=== PATIENT | female | born 1995 | race Caucasian/White ===

== ENCOUNTER → 2022-07-26 | Outpatient (CLI) | payer OTHER ==
--- NOTE | 2022-07-27 04:11 | US ---
EXAMINATION TYPE: Transabdominal DATE OF EXAM: 07/26/2022 4:32 PM COMPARISON: NONE CLINICAL HISTORY: Z36.89 CONFIRM DATES. Positive beta hCG test. EXAM PERFORMED: Transabdominal (TA) EXAM MEASUREMENTS: GESTATIONAL AGE / DATING Physician Established: Not yet established Dates by LMP: LMP unknown Dates by First Scan: No previous this is first scan Dates by Current Scan for: (8 weeks/2 days) EDC: 03-05-23 MATERNAL ANATOMY Uterus: 11.6 x 5.0x 7.4cm Right Ovary: 3.1 x 2.9 x 2.3cm Left Ovary: 3.0 x 1.9x 1.9cm Post CDS / Adnexa: wnl Presence of free fluid: no GESTATION / SURVEY CRL: 1.8cm (8 weeks/2 days) Yolk Sac (normal less than 6mm): 4mm Heart Rate: 182 bpm Rhythm: Normal IUP: Viable IUP Age Appropriate Anatomy Cord Insertion: Too early to visualize Limbs: Too early to visualize Calvarium: Too early to visualize Date of LMP: unknown Beta HcG (if available): Not available at this time Single live intrauterine gestation is confirmed as Gestational sac, yolk sac, and pole are seen . No free fluid. Bilateral ovaries are seen. No suspicious extraovarian adnexal mass. IMPRESSION: Single live intrauterine gestation confirmed. Mean crown-rump length 1.8 cm corresponding to 8 week 2 day old fetus.
== END | disposition home or self-care (01) ==
LOC: RADUSWWP 16:13
PROVIDERS: ATTEND Obstetrics & Gynecology
DX: Z36.89 Encounter for other specified antenatal screening (principal); Z3A.08 8 weeks gestation of pregnancy
CPT/HCPCS: 76801

== ENCOUNTER 2022-11-19 10:14 | Outpatient (CLI) | payer OTHER ==
[2022-11-19 10:58] VITALS: BP 105/62; PULSE 74; RESP 16; TEMP 97.8
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
== END 2022-11-19 11:17 | disposition home or self-care (01) ==
LOC: FBPOP 10:14
PROVIDERS: ATTEND Obstetrics & Gynecology
DX: O26.892 Other specified pregnancy related conditions, second trimester (principal); Z3A.24 24 weeks gestation of pregnancy; F17.200 Nicotine dependence, unspecified, uncomplicated
CPT/HCPCS: 99213

== ENCOUNTER 2023-02-27 13:41 | Inpatient (IN) | payer OTHER ==
[2023-02-27 18:04] VITALS: RESP 16
--- NOTE | 2023-02-27 18:36 | P.HPOB ---
History of Present Illness H&P Date: 02/27/23 Chief Complaint: Normal labor 27-year-old presents at 39 weeks and 2 days in active labor. Her cervix is 5 cm, 70% effaced, and -2 station. She is jatinder every 2-4 minutes. heart tones 135 with moderate variability and reactive. Review of Systems All systems: negative Constitutional: Denies chills, Denies fever Eyes: denies blurred vision, denies pain Ears, nose, mouth and throat: Denies headache, Denies sore throat Cardiovascular: Denies chest pain, Denies shortness of breath Respiratory: Denies cough Gastrointestinal: Denies abdominal pain, Denies diarrhea, Denies nausea, Denies vomiting Genitourinary: Denies dysuria, Denies hematuria Musculoskeletal: Denies myalgias Integumentary: Denies pruritus, Denies rash Neurological: Denies numbness, Denies weakness Psychiatric: Denies anxiety, Denies depression Endocrine: Denies fatigue, Denies weight change Past Medical History Past Medical History: No Reported History History of Any Multi-Drug Resistant Organisms: None Reported Past Surgical History: No Surgical Hx Reported Past Anesthesia/Blood Transfusion Reactions: No Reported Reaction Past Psychological History: No Psychological Hx Reported Smoking Status: Current every day smoker, Vaper Past Alcohol Use History: None Reported Past Drug Use History: None Reported - Past Family History Father Family Medical History: No Reported History Medications and Allergies Home Medications Medication Instructions Recorded Confirmed Type Pnv,Calcium 72/Iron/Folic Acid 1 each PO DAILY 02/27/23 02/27/23 History [Westab Plus Tablet] Allergies Allergy/AdvReac Type Severity Reaction Status Date / Time latex AdvReac Itching Verified 02/27/23 14:00 Exam Osteopathic Statement: *. No significant issues noted on an osteopathic structural exam other than those noted in the History and Physical/Consult. Vital Signs Temp Pulse Resp BP Pulse Ox 02/27/23 17:54 97 F L 64 16 94/53 95 Intake and Output 02/27/23 02/27/23 02/27/23 06:59 14:59 22:59 Other: Weight 87.09 kg 87.09 kg Heart: Regular rate and rhythm Lungs: Clear to auscultation bilaterally Abdomen: Soft, nontender Extremities: Negative Homans sign Assessment and Plan (1) Normal labor Current Visit: Yes Status: Acute Code(s): O80 - ENCOUNTER FOR FULL-TERM UNCOMPLICATED DELIVERY; Z37.9 - OUTCOME OF DELIVERY, UNSPECIFIED SNOMED Code(s): 13900070 Plan: 1. Admit to family place 2. Expectant management 3. Anticipate normal vaginal delivery
[2023-02-27] MEDS ORDERED: TERBUTALINE 1 MG/ML VIAL SQ PRN (18:54)
[2023-02-27] MEDS ORDERED: LIDOCAINE 0.5% (PF) 5 MG/ML (50 ML SDV) SQ PRN (18:54)
[2023-02-27] MEDS ORDERED: METHYLERGONOVINE 0.2 MG/ML 1 ML AMP IM PRN (18:54)
[2023-02-27] MEDS ORDERED: OXYTOCIN 10 UNIT/ML 1 ML VIAL IM PRN (18:54)
[2023-02-27] MEDS ORDERED: TRANEXAMIC 1,000 MG/100ML-NACL 1,000 MG in EMPTY BAG 1 BAG IV PRN (18:54)
[2023-02-27] MEDS ORDERED: CARBOPROST TROMETHAMINE 250 MCG/ML 1 ML AMP IM PRN (18:54)
[2023-02-27] MEDS ORDERED: miSOPROStoL 200 MCG TAB PO PRN (18:54)
[2023-02-27] MEDS ORDERED: OXYTOCIN 30 UNITS/500 ML NS 30 UNIT in SALINE 1 500ML.BAG IV SCH (19:00)
[2023-02-27 19:16] LABS: Basophils % (A) 0 %; Eosinophils # (A) 0.1 k/uL (0-0.7); Eosinophils % (A) 0 %; HCT 39.2 % (34.0-46.0); HGB 13.1 gm/dL (11.4-16.0); Lymphocytes # (A) 2.3 k/uL (1.0-4.8); Lymphocytes % (A) 14 %; MCH 31.3 pg (25.0-35.0); MCHC 33.4 g/dL (31.0-37.0); MCV 93.7 fL (80.0-100.0); Monocytes # (A) 0.7 k/uL (0-1.0); Monocytes % (A) 4 %; Neutrophils # (A) 13.4 k/uL (1.3-7.7); Neutrophils % (A) 81 %; Platelet Count 225 k/uL (150-450); RBC 4.18 m/uL (3.80-5.40); RDW 13.8 % (11.5-15.5); WBC 16.5 k/uL (3.8-10.6)
[2023-02-27] MEDS ORDERED: NALBUPHINE 10 MG/ML (10 ML MDV) IV PRN (20:17)
[2023-02-28] MEDS ORDERED: ZOLPIDEM 5 MG TAB PO PRN (02:13)
[2023-02-28] MEDS ORDERED: diphenhydrAMINE 50 MG CAP PO PRN (02:13)
[2023-02-28] MEDS ORDERED: ACETAMINOPHEN TAB 325 MG TAB PO PRN (02:13)
[2023-02-28] MEDS ORDERED: diphenhydrAMINE 25 MG CAP PO PRN (02:13)
[2023-02-28] MEDS ORDERED: BENZOCAINE/MENTHOL SPRAY 1 GM/SPRAY AEROSOL TOPICAL PRN (02:13)
[2023-02-28] MEDS ORDERED: LANOLIN CREAM 5 GM TUBE TOPICAL PRN (02:13)
[2023-02-28] MEDS ORDERED: HYDROCORTISONE 2.5% RECTAL CREAM 30 GM TUBE RECTAL PRN (02:13)
[2023-02-28] MEDS ORDERED: SIMETHICONE 80 MG CHEWABLE PO PRN (02:13)
[2023-02-28] MEDS ORDERED: diphenhydrAMINE 50 MG/ML 1 ML VIAL IVP PRN ×2 (02:13)
[2023-02-28] MEDS: SENNOSIDES-DOCUSATE SODIUM 1 EACH TAB PO SCH ×3 (09:18→20:12)
[2023-02-28] MEDS: IBUPROFEN 600 MG TAB PO PRN ×2 (09:27→18:05)
[2023-02-28] MEDS ORDERED: Rhogam IMMUNE GLOBULIN 1,500 UNIT/1 ML IM ONE (13:23)
[2023-03-01 07:23] LABS: Basophils # (A) 0.1 k/uL (0-0.2); Basophils % (A) 0 %; Eosinophils # (A) 0.2 k/uL (0-0.7); Eosinophils % (A) 1 %; HCT 33.3 % (34.0-46.0); HGB 11.3 gm/dL (11.4-16.0); Lymphocytes # (A) 3.5 k/uL (1.0-4.8); Lymphocytes % (A) 20 %; MCH 31.9 pg (25.0-35.0); MCHC 33.9 g/dL (31.0-37.0); MCV 94.1 fL (80.0-100.0); Mean Platelet Volume 11.5; Monocytes # (A) 0.7 k/uL (0-1.0); Monocytes % (A) 4 %; Neutrophils # (A) 12.6 k/uL (1.3-7.7); Neutrophils % (A) 73 %; Platelet Count 182 k/uL (150-450); RBC 3.54 m/uL (3.80-5.40); RDW 13.6 % (11.5-15.5); WBC 17.2 k/uL (3.8-10.6)
[2023-03-01] MEDS: IBUPROFEN 600 MG TAB PO PRN (07:50)
[2023-03-01] MEDS: SENNOSIDES-DOCUSATE SODIUM 1 EACH TAB PO SCH (07:50)
--- NOTE | 2023-03-01 16:01 | P.PROBDLV ---
Vaginal Delivery Note - . Vaginal Delivery Note: 27-year-old presents at 39 weeks and 2 days in active labor. Her cervix is 5 cm, 70% effaced, and -2 station. She is jatinder every 2-4 minutes. heart tones 135 with moderate variability and reactive. Amniotomy performed at 1816 and clear fluid noted. Patient slowly progressed to complete. She pushed and delivered a viable male over intact perineum at 00 47. Head delivered OA, anterior shoulder delivered gentle downward guidance by poste rior shoulder and rest of body. Nose and mouth bulb suctioned, cord clamped and cut, infant placed mother's abdomen. Apgars 9, 9, weight 8 pounds 6.4 ounces. Placenta delivered spontaneously, intact with three-vessel cord at 0051. Vagina, cervix, and perineum were inspected. First-degree right perineal laceration was repaired with 3-0 Vicryl. Estimated blood loss 200 mL. Mother and baby in stable condition.
--- NOTE | 2023-03-01 16:02 | P.DS ---
Providers Date of admission: 02/27/23 16:54 Expected date of discharge: 03/01/23 Attending physician: Luzmaria Ogden Primary care physician: Stated None - Discharge Diagnosis(es) (1) Normal labor Current Visit: Yes Status: Resolved (2) Normal vaginal delivery Current Visit: Yes Status: Acute Hospital Course: Patient presented in active labor. She underwent normal vaginal delivery. course was uneventful. She denies nausea, vomiting, fever, chills, chest pain, shortness of breath or calf pain. Patient we discharged home day #1 in stable condition to follow-up with me in 6 weeks. Plan - Discharge Summary New Discharge Prescriptions: New Ibuprofen [Motrin] 600 mg PO Q6HR PRN #30 tab PRN Reason: Mild Pain (Scale 1 To 3) No Action Pnv,Calcium 72/Iron/Folic Acid [Westab Plus Tablet] 1 each PO DAILY Discharge Medication List Pnv,Calcium 72/Iron/Folic Acid [Westab Plus Tablet] 1 each PO DAILY 02/27/23 [History] Ibuprofen [Motrin] 600 mg PO Q6HR PRN #30 tab 03/01/23 [Rx] Follow up Appointment(s)/Referral(s): Luzmaria Ogden DO [Doctor of Osteopathic Medicine] - 04/17/23 11:15 am Discharge Disposition: HOME SELF-CARE
[2023-03-01 17:19] VITALS: BP 128/71; PULSE 80; TEMP 98
== END 2023-03-01 18:45 | disposition home or self-care (01) | DRG 560 ==
LOC: FBPOP 13:41 → 4FBP 16:54
PROVIDERS: ADMIT Obstetrics & Gynecology; ATTEND Obstetrics & Gynecology
PROC: 10E0XZZ Delivery of Products of Conception, External Approach (ICD-10-PCS; principal; 2023-03-01)
PROC: 0HQ9XZZ Repair Perineum Skin, External Approach (ICD-10-PCS; 2023-03-01)
DX: O99.334 Smoking (tobacco) complicating childbirth (principal); O70.0 First degree perineal laceration during delivery; Z37.0 Single live birth; F17.290 Nicotine dependence, other tobacco product, uncomplicated; Z3A.39 39 weeks gestation of pregnancy
CPT/HCPCS: 59025; 85025; 85461; 86850; 86900; 86901; 99213